=== PATIENT | female | born 2000 | race Caucasian/White ===

== ENCOUNTER 2022-05-29 08:52 | Emergency (ER) | payer OTHER ==
[2022-05-29 09:07] VITALS: BP 125/73; RESP 20; TEMP 99.2; BMI 28.3
[2022-05-29] MEDS ORDERED: ACETAMINOPHEN 1000 MG/100 ML BAG IVPB ONE (09:29)
[2022-05-29] MEDS ORDERED: SODIUM CHLORIDE 0.9% 500 ML INFUS.BAG IV ONE (09:29)
[2022-05-29] MEDS ORDERED: ONDANSETRON 4 MG/2 ML VIAL IVPUSH ONE (09:30)
[2022-05-29] MEDS ORDERED: ACETAMINOPHEN INJECTION 100 ML IVPB ONE (09:31)
[2022-05-29] MEDS ORDERED: ONDANSETRON 4 MG/2 ML VIAL ONE (09:46)
[2022-05-29 10:04] LABS: BASO % 0.3 % (0-2.0); EOS % 0.1 % (0-4.5); HEMATOCRIT 37.7 % (32.4-45.2); HEMOGLOBIN 12.9 GM/dL (10.7-15.3); LYMPH % 10.4 % (8-40); MCH 29.6 pg (25.7-33.7); MCHC 34.3 g/dl (32.0-36.0); MEAN CELL VOLUME 86.1 fl (80-96); MEAN PLT VOLUME 7.6 fl (7.5-11.1); MONO % 6.5 % (3.8-10.2); NEUT % 82.7 % (42.8-82.8); PLATELET COUNT 289 10^3/uL (134-434); RBC 4.37 M/mm3 (3.60-5.2); RDW 13.5 % (11.6-15.6); WHITE BLOOD COUNT 15.4 K/mm3 (4.0-10.0)
[2022-05-29 10:29] LABS: ALBUMIN 3.7 g/dl (3.4-5.0); BLOOD UREA NITROGEN 9.8 mg/dL (7-18); CALCIUM 8.5 mg/dL (8.5-10.1)
[2022-05-29] MEDS ORDERED: KETOROLAC TROMETHAMINE 15 MG/ML VIAL IVPUSH ONE (10:29)
[2022-05-29] MEDS ORDERED: KETOROLAC TROMETHAMINE 15 MG/ML VIAL ONE (10:29)
[2022-05-29 10:31] LABS: CREATININE 0.7 mg/dL (0.55-1.3)
[2022-05-29 10:34] LABS: BILIRUBIN,TOTAL 1.8 mg/dL (0.2-1); TOT PROT 7.7 g/dl (6.4-8.2)
[2022-05-29 10:51] LABS: THROAT:GRP A STREP NOT DETECTED (NOTDETECTED)
[2022-05-29 11:16] LABS: EPI CELLS >36 /uL (0-25.1); HYALINE CASTS 0 /uL (0-3.1); PH,URINE 7.5 (5.0-8.0); URINE APPEARANCE CLEAR; URINE BACTERIA 1787 /uL (0-1359); URINE BILIRUBIN NEGATIVE (NEGATIVE); URINE COLOR YELLOW; URINE GLUCOSE (UA) NEGATIVE (NEGATIVE); URINE KETONE TRACE (NEGATIVE); URINE LEUK ESTERASE TRACE (NEGATIVE); URINE NITRITE NEGATIVE (NEGATIVE); URINE PROTEIN NEGATIVE (NEGATIVE); URINE RBC 16 /uL (0-23.9); URINE WBC 35 /uL (0-25.8)
[2022-05-29 11:28] VITALS: PULSE 90
== END 2022-05-29 11:28 | disposition home or self-care (01) ==
LOC: JERFT 08:52 → JER 08:52 → JERFT 11:28
PROC: 3E033NZ Introduction of Analgesics, Hypnotics, Sedatives into Peripheral Vein, Percutaneous Approach (ICD-10-PCS; principal; 2022-05-29)
PROC: 3E033GC Introduction of Other Therapeutic Substance into Peripheral Vein, Percutaneous Approach (ICD-10-PCS; 2022-05-29)
PROC: 3E033GC Introduction of Other Therapeutic Substance into Peripheral Vein, Percutaneous Approach (ICD-10-PCS; 2022-05-29)
DX: J02.9 Acute pharyngitis, unspecified (principal); R11.10 Vomiting, unspecified; B34.9 Viral infection, unspecified; R07.9 Chest pain, unspecified; R20.2 Paresthesia of skin; M54.2 Cervicalgia; Z20.822 Contact with and (suspected) exposure to COVID-19
CPT/HCPCS: 0241U-QW; 36415; 71046-TC-FY; 80053; 81003; 83735; 84484; 84703; 85025; 87070; 87086; 87186; 87651; 93005; 93010; 99285-25

== ENCOUNTER 2022-06-03 05:50 | Emergency (ER) | payer OTHER ==
[2022-06-03 05:58] VITALS: BP 125/83; PULSE 86; RESP 20; TEMP 98.1; BMI 27.4
[2022-06-03] MEDS ORDERED: KETOROLAC TROMETHAMINE 30 MG/1 ML VIAL IM ONE (06:11)
[2022-06-03] MEDS ORDERED: BENZOCAINE/MENTH/CETYLPYRD CL 1 EACH LOZENGE MM PRN (06:11)
[2022-06-03] MEDS ORDERED: DEXAMETHASONE LIQUID 0.5 MG/5 ML PO ONE (06:11)
[2022-06-03] MEDS ORDERED: BENZOCAINE/MENTH/CETYLPYRD CL 1 EACH LOZENGE MM ONE (06:18)
[2022-06-03] MEDS ORDERED: DEXAMETHASONE SOD PHOSPHATE 10 MG/1 ML VIAL ONE (06:19)
[2022-06-03] MEDS ORDERED: KETOROLAC TROMETHAMINE 30 MG/1 ML VIAL ONE (06:20)
== END 2022-06-03 06:51 | disposition home or self-care (01) ==
LOC: JER 05:50
PROC: 3E0233Z Introduction of Anti-inflammatory into Muscle, Percutaneous Approach (ICD-10-PCS; principal; 2022-06-03)
DX: R05.1 Acute cough (principal); J02.9 Acute pharyngitis, unspecified
CPT/HCPCS: 36415; 86308; 99284-25

== ENCOUNTER 2022-06-07 08:16 | Emergency (ER) | payer OTHER ==
[2022-06-07 08:36] VITALS: RESP 18; BMI 27.4
[2022-06-07] MEDS ORDERED: KETOROLAC TROMETHAMINE 30 MG/1 ML VIAL IM ONE (09:51)
[2022-06-07] MEDS ORDERED: DEXAMETHASONE LIQUID 0.5 MG/5 ML PO ONE (09:51)
[2022-06-07] MEDS ORDERED: KETOROLAC TROMETHAMINE 30 MG/1 ML VIAL ONE (09:57)
[2022-06-07] MEDS ORDERED: DEXAMETHASONE SOD PHOSPHATE 4 MG/1 ML VIAL ONE (09:57)
[2022-06-07 10:21] VITALS: BP 128/77; PULSE 89; TEMP 98.9
== END 2022-06-07 10:57 | disposition home or self-care (01) ==
LOC: JER 08:16 → JERFT 08:16
PROC: 3E0233Z Introduction of Anti-inflammatory into Muscle, Percutaneous Approach (ICD-10-PCS; principal; 2022-06-07)
DX: J02.8 Acute pharyngitis due to other specified organisms (principal); R07.0 Pain in throat
CPT/HCPCS: 87070; 99284-25

== ENCOUNTER 2023-01-22 09:19 | Emergency (ER) | payer OTHER ==
[2023-01-22 09:25] VITALS: RESP 18; BMI 28.3
[2023-01-22] MEDS ORDERED: LIDOCAINE HCL 2% JELLY 10 ML CARTRIDGE PR ONE (10:36)
[2023-01-22] MEDS ORDERED: LIDOCAINE HCL 2% JELLY 6 ML TP ONE (10:38)
[2023-01-22] MEDS ORDERED: LACTULOSE 20 GM/30 ML UDC (FOR ORAL USE ONLY) PO ONE (10:44)
[2023-01-22] MEDS ORDERED: LACTULOSE 20 GM/30 ML UDC (FOR ORAL USE ONLY) ONE (10:52)
[2023-01-22 11:40] VITALS: BP 99/54; PULSE 74; TEMP 98.2
== END 2023-01-22 11:48 | disposition home or self-care (01) ==
LOC: JER 09:19
DX: K59.00 Constipation, unspecified (principal)
CPT/HCPCS: 84703; 99283-25

== ENCOUNTER 2023-05-15 07:17 | Emergency (ER) | payer OTHER ==
[2023-05-15 07:31] VITALS: BP 113/73; RESP 16; TEMP 98.6; BMI 29.5
[2023-05-15 08:19] LABS: EPI CELLS >36 /uL (0-25.1); HYALINE CASTS 33 /uL (0-3.1); URINE APPEARANCE CLOUDY; URINE BACTERIA 4532 /uL (0-1359); URINE BILIRUBIN NEGATIVE (NEGATIVE); URINE COLOR YELLOW; URINE GLUCOSE (UA) NEGATIVE (NEGATIVE); URINE KETONE TRACE (NEGATIVE); URINE LEUK ESTERASE 2+ (NEGATIVE); URINE NITRITE NEGATIVE (NEGATIVE); URINE PROTEIN TRACE (NEGATIVE); URINE RBC 50 /uL (0-23.9); URINE WBC 731 /uL (0-25.8)
[2023-05-15] MEDS ORDERED: IBUPROFEN 600 MG TABLET (FP) PO ONE (09:15)
[2023-05-15] MEDS: IBUPROFEN 600 MG TABLET (FP) PO ONE (09:16)
[2023-05-15 10:03] VITALS: PULSE 86
== END 2023-05-15 10:03 | disposition home or self-care (01) ==
LOC: JER 07:17
DX: R10.813 Right lower quadrant abdominal tenderness (principal); R10.814 Left lower quadrant abdominal tenderness; R10.2 Pelvic and perineal pain; G89.29 Other chronic pain; R50.9 Fever, unspecified; N30.00 Acute cystitis without hematuria
CPT/HCPCS: 36415; 76830-TC; 81003; 84703; 87086; 87186; 87491; 87591; 87661; 99284-25

== ENCOUNTER 2023-09-04 10:45 | Emergency (ER) | payer SELFPAY ==
[2023-09-04 11:02] VITALS: BP 107/65; PULSE 96; RESP 20; TEMP 98.3; BMI 28.9
== END 2023-09-04 14:07 | disposition left against medical advice (07) ==
LOC: JERFT 10:45
DX: R10.30 Lower abdominal pain, unspecified (principal)
CPT/HCPCS: 99282-25

== ENCOUNTER 2024-05-21 09:49 | Emergency (ER) | payer OTHER ==
[2024-05-21 09:58] VITALS: BP 113/69; PULSE 94; RESP 16; TEMP 98.4; BMI 26.8
[2024-05-21] MEDS ORDERED: ACETAMINOPHEN 500 MG TABLET (FP) ONE (10:19)
[2024-05-21] MEDS: ACETAMINOPHEN 500 MG TABLET (FP) PO ONE (10:27)
[2024-05-21 10:41] LABS: MCHC 33.3 g/dl (32.2-35.5); MEAN CELL VOLUME 85.7 fl (79.4-94.8); MEAN PLT VOLUME 8.9 fl (9.4-12.3); PLATELET COUNT 288 x10^3/uL (182-369); RDW 13.2 % (12.1-16.5)
[2024-05-21 10:44] LABS: HCG,QUALITATIVE URINE Positive
[2024-05-21 11:17] LABS: POTASSIUM 3.4 mmol/L (3.5-5.1)
[2024-05-21 11:18] LABS: CALCIUM 8.6 mg/dL (8.5-10.1)
[2024-05-21 11:19] LABS: BLOOD UREA NITROGEN 7.7 mg/dL (7-18)
[2024-05-21 11:22] LABS: CREATININE 0.6 mg/dL (0.55-1.3)
[2024-05-21 11:55] LABS: URINE COLOR RED
[2024-05-21 11:56] LABS: URINE APPEARANCE BLOODY; URINE GLUCOSE (UA) NEGATIVE (NEGATIVE)
[2024-05-21 11:58] LABS: URINE PROTEIN 3+ (NEGATIVE)
[2024-05-21 11:59] LABS: URINE BILIRUBIN NEGATIVE (NEGATIVE)
[2024-05-21 12:40] LABS: HCV DIAGNOSTIC IN-HOUSE W/RFLX NON-REACTIVE (NONREACTIVE)
[2024-05-21 12:41] LABS: HIV INTERPRETATION NEGATIVE (NEGATIVE)
== END 2024-05-21 12:37 | disposition home or self-care (01) ==
LOC: JER 09:49
DX: O20.0 Threatened abortion (principal)
CPT/HCPCS: 36415; 76817-TC; 80048; 81003; 81015; 84702; 84703; 85025; 86803; 86850; 86900; 86901; 87086; 87186; 87389; 99284-25